=== PATIENT | female | born 1970 | race Two or more races ===

== ENCOUNTER 2019-10-24 12:52 | Emergency (ER) | payer BC, OTHER ==
[~2019-10-24] VITALS: Ht 162.6 cm; Wt 72.6 kg
--- NOTE | 2019-10-24 13:01 | NUR ---
CAME IN FOR COUGH AND CONGESTION SORE THROAT X 4 DAYS , TO ER BED 12, HOOKED TO MONITOR AND POX, WARM BLANKET PROVIDED, COMBINATION WELDER DEGRASSE AT BEDSIDE
--- NOTE | 2019-10-24 13:26 | NUR ---
Patient discharged to home in stable condition. Written and verbal after care instructions given. Patient verbalizes understanding of instruction.
[2019-10-24 13:27] VITALS: BP 116/80
== END 2019-10-24 13:27 | disposition home or self-care (01) ==
LOC: ER 12:52
DX: J06.9 Acute upper respiratory infection, unspecified (principal)

== ENCOUNTER 2020-04-22 07:36 | Emergency (ER) | payer OTHER ==
[~2020-04-22] VITALS: Ht 162.6 cm; Wt 74.8 kg
--- NOTE | 2020-04-22 07:36 | NUR ---
PT BIB SELF C/O BODY ACHE/COUGH/RUNNY NOSE/ SORE THROAT X 2 DAYS. PT IS AAOX4, NOT IN RESPIRATORY DISTRESS, V/S STABLE, KEPT RESTED AND COMFORTABLE. WILL CONTINUE TO MONITOR.
--- NOTE | 2020-04-22 07:55 | NUR ---
AT BEDSIDE FOR EVAL.
--- NOTE | 2020-04-22 08:40 | NUR ---
CALLED RADIOLOGY TO FOLLOW UP XRAY.
--- NOTE | 2020-04-22 08:52 | NUR ---
FIREARMS INSTRUCTOR AT BEDSIDE FOR XRAY.
--- NOTE | 2020-04-22 09:25 | NUR ---
Patient discharged to home in stable condition. Written and verbal after care instructions given. Patient verbalizes understanding of instruction.
[2020-04-22 09:26] VITALS: BP 129/77
== END 2020-04-22 09:26 | disposition home or self-care (01) ==
LOC: ER 07:40
DX: J06.9 Acute upper respiratory infection, unspecified (principal); Z20.828 Contact with and (suspected) exposure to other viral communicable diseases
CPT/HCPCS: 71045-TC